=== PATIENT | male | born 1995 | race Caucasian/White ===

== ENCOUNTER 2017-06-21 19:39 | Emergency (ER) | END 2017-06-21 20:57 | disposition home or self-care (01) ==

== ENCOUNTER 2018-04-02 18:36 | Emergency (ER) | payer OTHER ==
[~2018-04-02] VITALS: Ht 172.7 cm; Wt 62.4 kg
[~2018-04-02 18:36] MED LIST: CYCL10TA7 PO; DENIES; IBUP-1542 PO
[2018-04-02 18:44] VITALS: BP 140/73; PULSE 68; RESP 19; Ht 172.7 cm; Wt 62.4 kg
[2018-04-02] MEDS ORDERED: CETI10CA PO (20:47)
[2018-04-02] MEDS ORDERED: DIPH25CA6 PO (20:47)
[2018-04-02] MEDS ORDERED: HYDR28OI2 TP (20:47)
--- NOTE | 2018-04-03 06:59 | ERD ---
ER Documentation Chief Complaint Chief Complaint RASH ON LEFT SIDE OF CHEST, ITCHING/BURNING X3DAYS HPI 23-year-old male presents for rash on the left side of his chest times 3 days.. He states that the area is itching and burning. He denies any fevers or chills. No prior similar symptoms. Patient denies chest pain, shortness of breath, abdominal pain, nausea, vomiting. ROS All systems reviewed and are negative except as per history of present illness. Medications Home Meds Active Scripts Cetirizine Hcl* (Zyrtec*) 10 Mg Capsule, 10 MG PO DAILY PRN for ITCHING, #15 TAB.CHEW Prov:ROC SHOEMAKER 04/02/18 Diphenhydramine Hcl* (Diphenhydramine Hcl*) 25 Mg Capsule, 25 MG PO Q6 PRN for ITCHING, #30 CAP Prov:ROC SHOEMAKER 04/02/18 Hydrocortisone Acetate (Hydrocortisone) 28 Gm Oint...g., 28 GM TP BID PRN for ITCHING for 7 Days, #1 TUBE Prov:SAHARAROC 04/02/18 Cyclobenzaprine Hcl* (Cyclobenzaprine Hcl*) 10 Mg Tablet, 10 MG PO TID, #15 TAB Prov:SETH MERCER [employer]OUNTS CLERK 06/21/17 Ibuprofen* (Motrin*) 600 Mg Tab, 600 MG PO Q6H PRN for PAIN AND OR ELEVATED T EMP, #30 TAB Prov:SETH MERCER [employer]OUNTS CLERK 06/21/17 Reported Medications [Denies] No Conflict Check 12/03/09 Allergies Allergies: Coded Allergies: No Known Allergies (Verified Allergy, Mild, 12/03/09) PMhx/Soc History of Surgery: No Anesthesia Reaction: No Hx Neurological Disorder: No Hx Respiratory Disorders: No Hx Cardiac Disorders: No Hx Psychiatric Problems: No Hx Miscellaneous Medical Probl: No Hx Alcohol Use: Yes Hx Substance Use: Yes (MARIJUANA) Hx Tobacco Use: No Smoking Status: Current every day smoker Physical Exam Vitals Vital Signs Date Temp Pulse Resp B/P (MAP) Pulse Ox O2 O2 Flow FiO2 Time Delivery Rate 04/02/18 97.6 68 19 140/73 98 18:44 (95) Physical Exam Const: No acute distress Resp: Clear to auscultation bilaterally Cardio: Regular rate and rhythm, no murmurs Skin: Pustular, scabbed rash noted over the right upper chest, there is mild erythema. Back: No midline or flank tenderness Ext: No cyanosis, or edema Neur: Awake and alert Psych: Normal Mood and Affect Procedures/MDM Medical Decision Making: Differential diagnosis includes but not limited to contact dermatitis, atopic dermatitis, cellulitis Patient appeared well on physical exam. There is a pustular, scabbed rash noted over the right upper chest area. No increased warmth or erythema to suggest cellulitis. Therefore no antibiotics indicated. Patient likely has dermatitis. Prescription(s): Patient given prescription for hydrocortisone cream, Benadryl, Zyrtec. Patient advised to follow up with PCP in 1-2 days. Patient advised to return to ED for new or worsening symptoms. Patient stable on discharge from the ED. Disclaimer: Inadvertent spelling and grammatical errors are likely due to EHR/dictation software use and do not reflect on the overall quality of patient care. Also, please note that the electronic time recorded on this note does not necessarily reflect the actual time of the patient encounter. Departure Diagnosis: Primary Impression: Rash Condition: Fair Patient Instructions: Self-Care for Skin Rashes Referrals: [facility] (PCP) Additional Instructions: Call your primary care doctor TOMORROW for an appointment during the next 1-2 days.See the doctor sooner or return here if your condition worsens before your appointment time. ROC SHOEMAKER DO Apr 03, 2018 06:59
== END 2018-04-02 20:52 | disposition home or self-care (01) ==
LOC: FTE 18:36
DX: R21 Rash and other nonspecific skin eruption (principal); F17.210 Nicotine dependence, cigarettes, uncomplicated
CPT/HCPCS: 99282